=== PATIENT | male | born 1940 | race Caucasian/White ===

== ENCOUNTER 2024-08-29 19:37 | Emergency (ER) | payer MEDICARE, SELFPAY ==
--- NOTE | ~2024-08-29 | XR_ITS ---
XR chest 2V Ordering provider: Sneha North MD History: 83 years Male with . weak ness . Comparison: None. FINDINGS: MEDIASTINUM: The cardiac silhouette is not enlarged. LUNGS: No infiltrates, effusions or pneumothorax. Underlying emphysematous changes. OTHER: No free air under the diaphragm. Bilateral shoulder arthroplasty. Degenerative changes of the spine. IMPRESSION: No acute cardiopulmonary pathology. Reviewed, dictated and finalized at location A.
--- NOTE | 2024-08-29 19:42 | ECG_ITS ---
Test Date: 2024-08-29 19:57:04 Measurements Intervals [place] Rate: 86 P: 51 LA: 179 QRS: 66 QRSD: 146 T: -24 QT: 401 QTc: 482 Interpretive Statements SINUS RHYTHM RIGHT BUNDLE BRANCH BLOCK [120+ ms QRS DURATION, UPRIGHT V1, 40+ ms S IN I/aVL/V4/V5/V6] No previous ECG available for comparison Electronically Signed On 08-30-2024 14:00:59 CDT by John Catalan M.D.
[2024-08-29 19:51] VITALS: BP 93/57; PULSE 86; RESP 14; TEMP 37.7; O2SAT 99
[2024-08-29 20:14] LABS: Basophils Absolute Auto 0.1 K/mm3 (0.0-0.1); Basophils Percent Auto 0.3 % (0.2-1.2); Eosinophils Percent Auto 0.2 % (0-4.4); Hematocrit 24.5 % (42.0-52.0); Hemoglobin 7.4 g/dL (14.0-18.0); Immature Granulocyte Absolute 0.08 K/mm3 (0.00-0.031); Immature Granulocyte Percent A 0.6 % (0-0.5); Lymphocytes Absolute Auto 1.03 K/mm3 (0.9-3.2); Lymphocytes Percent Auto 7.1 % (18.3-44.2); Mean Corpuscular HGB Conc 30.2 g/dl (32-36); Mean Corpuscular Hemoglobin 20.4 pg (26-34); Mean Corpuscular Volume 67.7 fl (80-100); Monocytes Absolute Auto 1.4 K/mm3 (0.1-0.6); Monocytes Percent Auto 9.6 % (2.6-8.5); Neutrophils Percent Auto 82.2 % (45.5-73.1); Platelet Count Result 591 k/mm3 (150-375); Red Blood Count 3.62 M/mm3 (4.6-6.20); Red Cell Distribution Width 18.6 % (11.5-14.5); White Blood Count 14.5 K/mm3 (4.5-10.0)
[2024-08-29 20:28] LABS: Alanine Aminotransferase 24 U/L (6-50); Albumin Level 3.1 g/dL (3.5-5.1); Alkaline Phosphatase 185 U/L (38-126); Anion Gap 11 mmol/L (4-12); Aspartate Amino Transferase 24 U/L (17-59); Bilirubin,Total 0.4 mg/dL (0.2-1.3); Blood Urea Nitrogen 22 mg/dL (9-20); Calcium 8.4 mg/dL (8.4-10.2); Carbon Dioxide 22 mmol/L (22-30); Chloride 92 mmol/L (98-107); Estimated CRCL calculation 62 ml/min; Estimated Glomerular Filt Rate > 60; Glucose 113 mg/dL (65-110); Potassium 3.8 mmol/L (3.4-5.0); Sodium 125 mmol/L (137-145)
[2024-08-29 20:41] LABS: Anisocytosis 1+; Band Neutrophils Percent 0 % (0-6); Ovalocytes 1+; Platelet Estimate Increased (Adequate); Schistocytes None Seen; Target Cells 1+
[2024-08-29 20:53] VITALS: BP 116/72; PULSE 86; RESP 16; O2SAT 93
[2024-08-29 20:53] LABS: Influenza A QL RT-PCR Negative (Negative); Influenza B QL RT-PCR Negative (Negative); RSV RNA, RT-PCR Negative (Negative); SARS-CoV-2 RNA PCR Negative (Negative)
--- NOTE | 2024-08-29 21:17 | ED_ITS ---
HPI - Weakness General Chief complaint: Weakness Stated complaint: weak, anemia, low bp Time Seen by Provider: 08/29/24 21:10 Source: patient Mode of arrival: ambulatory Limitations: no limitations History of Present Illness HPI Narrative: This is an 83-year-old male who presents to the ED for chief complaint of generalized weakness ongoing for the past several weeks. Patient was just admitted and discharged from defer facility for this same complaint with findings of anemia and low blood pressure. Patient states that he is feeling about the same from when he was discharged from the hospital. His family is bedside and concerned that he has not gotten better with the iron pills that they prescribed. He has been taking ferrous sulfate 3 times a day for the past 2 days. Family is concerned that home health found his blood pressure to be in the 50s yesterday. Patient states that he does have bilateral lower extremity swelling but denies shortness of breath. Patient states that he has not developed any kind of worsening symptoms, fever or pain since leaving the hospital. Denies chest pain, abdominal pain, lightheadedness or syncope. Family states that they are unsure of what is causing his anemia. Review of Systems 2 Review of Systems: All systems as dictated in HPI Exam 2 Narrative: GENERAL: Appears elderly and frail. HEAD: Normocephalic, atraumatic. EYES: PERRLA and EOMI. ENT: Nares clear, no rhinorrhea or epistaxis. Mucous membranes moist. Oropharynx without tonsillar hypertrophy exudate or other lesions. NECK: Supple. No adenopathy or masses. CHEST: No respiratory distress. Clear to auscultation. No wheezes rales or rhonchi HEART: Regular rate and rhythm. No murmur heard. Normal peripheral pulses. ABDOMEN: Soft, nontender, nondistended, normal active bowel sounds. MSK: 3+ pitting edema to the bilateral lower extremities. Normal range of motion throughout all extremities. SKIN: Warm, dry, no rash. NEURO: Alert and oriented x4. No focal deficits. PSYCH: Normal mood and affect. Course Vital Signs Vital signs: Vital Signs Temperature 99.8 F H 08/29/24 19:51 Pulse Rate 86 08/29/24 19:51 Respiratory Rate 14 08/29/24 19:51 Blood Pressure 93/57 L 08/29/24 19:51 Pulse Oximetry 99 08/29/24 19:51 Temperature 99.8 F H 08/29/24 19:51 Pulse Rate 86 08/29/24 20:53 Respiratory Rate 16 08/29/24 20:53 Blood Pressure 116/72 08/29/24 20:53 Pulse Oximetry 93 08/29/24 20:53 MDM - Weakness MDM Narrative Medical decision making narrative: This is a 83-year-old male who presents to the ED for generalized weakness and anemia. Vitals are normal. Exam remarkable for the above. He does appear elderly and frail. He has 3+ pitting edema to the bilateral ankles. Saturating well on room air with no evidence of fluid overload to his chest. Lab work shows mildly elevated white count of 14.5. He is explaining that he chronically has an elevated white count and this is about what it was during his recent hospital stay at another facility. Hemoglobin of 7.4 today. Again during his recent facility patient reports that his hemoglobin was around 7.1. They did start him on ferrous sulfate outpatient. Their main reason for being here today was because he was still feeling weak after several days of the ferrous sulfate treatment. Explain to the patient and family that it takes quite some time for ferrous sulfate to make a significant clinical difference for iron deficiency anemia and the symptoms associated. BNP was drawn with the increased swelling and is only elevated to 739 today. Does not appear to be in acute CHF. His albumin is low at 3.1 which may be contributing to his swelling. I offered admission for the above findings for further investigation of the anemia and generalized weakness. Patient states that he feels well enough to and like to follow-up with primary care on this issue. Advise that he address the anemia and the swelling with PCP. Family's questions have been answered and they are in agreement with this plan. Patient will be discharged in stable condition. Supportive measures discussed and return precautions given. Patient is understanding and agreeable with plan for discharge with PCP follow-up. Lab Data 08/29/24 20:08 08/29/24 20:08 Labs: Lab Results 08/29/24 Range/Units 20:08 WBC 14.5 H (4.5-10.0) K/mm3 RBC 3.62 L (4.6-6.20) M/mm3 Hgb 7.4 L (14.0-18.0) g/dL Hct 24.5 L (42.0-52.0) % MCV 67.7 L (80-100) fl MCH 20.4 L (26-34) pg MCHC 30.2 L (32-36) g/dl RDW 18.6 H (11.5-14.5) % Plt Count 591 H (150-375) k/mm3 MPV 8.0 (7.4-10.4) fl Immature Gran % (Auto) 0.6 H (0-0.5) % Neut % (Auto) 82.2 H (45.5-73.1) % Lymph % (Auto) 7.1 L (18.3-44.2) % Yancey % (Auto) 9.6 H (2.6-8.5) % Eos % (Auto) 0.2 (0-4.4) % Baso % (Auto) 0.3 (0.2-1.2) % Lymph # (Auto) 1.03 (0.9-3.2) K/mm3 Yancey # (Auto) 1.4 H (0.1-0.6) K/mm3 Eos # (Auto) 0.0 (0-0.3) K/mm3 Baso # (Auto) 0.1 (0.0-0.1) K/mm3 Abs Immat Gran (auto) 0.08 H (0.00-0.031) K/mm3 Absolute Neuts (auto) 12.0 H (1.3-6.7) K/mm3 Absolute Nucleated RBC 0.000 (0.0-0.012) K/mm3 Band Neutrophils % 0 (0-6) % Nucleated RBC % 0.0 (0.0-0.2) % Platelet Estimate Increased (Adequate) Anisocytosis 1+ Target Cells 1+ Ovalocytes 1+ Schistocytes None seen Sodium 125 L (137-145) mmol/L Potassium 3.8 (3.4-5.0) mmol/L Chloride 92 L (98-107) mmol/L Carbon Dioxide 22 (22-30) mmol/L Anion Gap 11 (4-12) mmol/L BUN 22 H (9-20) mg/dL Creatinine 0.65 L (0.7-1.3) mg/dL Estim Creat Clear Calc 62 ml/min Estimated GFR > 60 (59 - ) Glucose 113 H (65-110) mg/dL Calcium 8.4 (8.4-10.2) mg/dL Total Bilirubin 0.4 (0.2-1.3) mg/dL AST 24 (17-59) U/L ALT 24 (6-50) U/L Alkaline Phosphatase 185 H (38-126) U/L Total Protein 6.0 L (6.3-8.2) g/dL Albumin 3.1 L (3.5-5.1) g/dL Influenza A (RT-PCR) Negative (Negative) Influenza B (RT-PCR) Negative (Negative) RSV (RT-PCR) Negative (Negative) SARS-CoV-2 RNA (RT-PCR) Negative (Negative) Discharge Plan Discharge Clinical Impression: Anemia, Edema, pitting Patient Disposition: Home, Self-Care Condition: Stable Instructions: Antibiotic Form Additional Instructions: Exam and workup today does show anemia. It seems that your labs are probably at their baseline from most recent hospital stay. Please follow-up closely with primary care for anemia workup. Continue taking iron pills for likely iron deficiency anemia. Increase calorie intake, specifically protein intake as well as electrolytes. If you have any new or worsening symptoms please return to the ER for further evaluation. Patient Language: Chadian Prescriptions: New ferrous sulfate 325 mg (65 mg iron) tablet 325 mg PO DAILY Qty: 30 0RF Follow-up/Referrals: PHYSICIAN NOT ON STAFF,NONSTAFF [Primary Care Provider] - Jennifer Matt DO [Physician] - Time of Disposition: 22:02
[2024-08-29 21:52] LABS: NT Pro B Type Natriuretic Pept 739 pg/mL (19.9-100)
--- OUTSIDE RECORDS SUMMARY | 2024-08-29 22:24 | XMS_ITS | Data Portability ---
Author Organization [facility], [address] [place] [address] ([place]) Address [address] [place] [address] Care Team Providers Care Cake Stripper Name Role Phone GISELECHANEL PORTER Primary Care Provider [phone] Assessment Encounter Date Assessment Date Assessment LastModified by Organization Details LastModified Time 01/25/2024 01/25/2024 1. The following diagnosis is categorized as a SELF-LIMITED OR MINOR PROBLEM: We discussed the fact that lentigines are actinically induced and that they are benign. We discussed the fact that they should be watched carefully for change. We discussed the importance of photoprotection using protective clothing and sunscreen with SPF thirty or higher on a regular basis. 2.The following diagnosis is categorized as a CHRONIC ILLNESS (STABLE/At Pt Goal): Benign nevi. We discussed the importance of watching for new and/or changing lesions. We discussed the worrisome changes to watch for that could indicate a melanoma. We discussed the importance of photoprotection using protective clothing and sunscreen with OTC SPF 30 or higher. Avoid peak hours of sun exposure (10am-3pm). We discussed the importance of regular self-skin examinations. 3. The following diagnosis is categorized as a SELF LIMITED OR MINOR PROBLEM: Seborrheic keratosis,: We discussed the fact that these are benign lesions requiring no treatment. We discussed the fact that removal would be considered a cosmetic procedure and would not be covered by insurance. The patient was advised that more such lesions may develop. The patient is not bothered by the lesions and does not wish to have them treated. We will observe. OTC tx for SK: wart removers, dermabrasion, 35% hydrogen peroxide daily with paint or makeup brush 4. The following diagnosis is categorized as a CHRONIC ILLNESS : History of non-melanoma skin cancer. We discussed the importance of regular skin examinations by a physician as well as monthly self-skin examinations. No evidence of recurrence in previously treated areas. We discussed the worrisome changes to watch for in skin lesions. We discussed the importance of watching for new and/or changing lesions. We discussed the importance of photoprotection using protective clothing and sunscreen with SPF 30 or higher. Pt was instructed to call the office if develops a lesion which grows or changed rapidly. 5. The following diagnosis is categorized as a CHRONIC ILLNESS (STABLE/At Pt Goal): History of melanoma, 0.6 mm, on right helix s/p excision and SLNB negative 05/2018. Recall in task to reflect the date of his next appointment. We discussed the importance of regular skin examinations by a physician as well as monthly self skin examinations. No evidence of recurrence in previously treated areas. We discussed the worrisome changes to watch for in skin lesions. We discussed the importance of watching for new and/or changing lesions. We discussed the importance of photoprotection using protective clothing and sunscreen with SPF thirty or higher. Recommend yearly eye and dental exam. 6. The following diagnosis is categorized as a CHRONIC ILLNESS: Actinic Damage: Discussed diagnosis and treatment options. Pt opts to treat with field therapy. PRESCRIPTION DRUG MANAGEMENT was performed including discussion with the patient and/or family member that may include dose, expectations of treatment including potential side effects, review of patient response, and when necessary or clinically appropriate change in medication or dosage. After reviewing risks and benefits of treatment, we decided to proceed with topical RX 5-FU. The risks and benefits of were discussed in detail. The side effects of redness, irritation, burning, discomfort and sun sensitivity were discussed. The patient is to apply a thin film to the affected area(s) on the left forearm and forehead and wash hands thoroughly after application. The patient is to use this BID x 3 weeks to arms. Informational brochure given to and discussed with patient. The patient expresses understanding. The patient is to call with any problems or questions. 7.The following diagnosis is categorized as a CHRONIC ILLNESS: Actinic keratoses: I suggested we treat the lesions with liquid nitrogen today. The risks and benefits of the procedure, the risks and benefits of alternative procedures, as well as the possible consequences of not undergoing the procedure were discussed. The patient verbalized understanding and gives consent to proceed. Liquid nitrogen was applied to all affected areas. Side effects of pain, redness, blistering, scabbing, hypopigmentation and recurrence were discussed with the patient. The patient was advised that these are pre-skin cancers: they have a small risk of developing into skin cancers and their presence signifies an increased risk for developing skin cancer. Thus she was advised to use a sunscreen of at least SPF 30 and wear protective clothing. Lesions were treated on the left cheek 2, left ear 1, right cheek 4, right ear 1, . Pt to call if lesions do not heal/resolve as expected. Pt voiced understanding I asked pt to return in 6 months for TBSE/ Hx: Melanoma/NMSC. Pt is advised to call office with questions and concerns. [facility] 01/25/2024 15:46:51 Plan of Treatment Reminders Order Date Submit Date Provider Last Modified By Organization Details Last Modified Time Details Appointments Establish ed Patient 15.EST 2024 03:00P M Viki Tompkins Not available Not available Not available Lab None recorded. Referral None recorded. Procedures None recorded. Surgeries None recorded. Imaging None recorded. Medication Orders Efudex 5 % topical cream 2023 024 [id number], [address], [place], [phone], 01/25/2024 15:39:47 Patient TargetsNo targets recorded. Patient InstructionsNo instructions recorded. Reason for Referral None Reported. 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 Procedures Surgical History Date Name Laterality Status Provider Name and Address Organization Details Recorded Time excision of malignant neoplasm completed Jaz Briggs [facility] 01/23/2024 17:43:40 Imaging Results None recorded. Procedure Notes None recorded. Medical Equipment None Reported. Medications Name Sig Start Date Stop Date Status Note LastModified by Organization Details LastModified Time latanoprost 0.005 % eye drops INSTILL 1 DROP IN LEFT EYE EVERY MORNING active Not Available Not Available No t Available Efudex 5 % topical cream Apply to affected areas twice daily. Wear sun protectio n. 2023 active Not Available Not Available Not Avai lable hydrochlorothi azide 25 mg tablet TAKE 1 TABLET BY MOUTH DAILY active Not Available Not Available No t Available Vitals None Recorded Social History None recorded. Functional Status None recorded. Mental Status None recorded. Family History Nothing Reported. Medical History No medical history recorded. Past Encounters Encounter ID Performer Location Encounter Start Date Encounter Closed Date Diagnosis/Indication Diagnosis SNOMED-CT Code Diagnosis ICD10 Code Diagnosis Note [id number] Viki Connor MD [facility] [address] [facility] [place] [address] 01/25/2024 13:40:27 01/25/2024 14:26:20 Actinic keratosis 925768608 L57.0 Melanocyti c nevus of right upper limb 173294942 D22.61 Melanocyti c nevus of left lower limb 4437036500 63163 D22.72 History of malignant neoplasm of skin 523547615 Z85.828 Skin hsu es due to chronic exposure to non-ionizing radiation 428900830 L57.8 Health Concerns Section Related Observation LastModified by Organization Detai ls LastModified Time None Recorded Concern Status LastModified by Organization Details LastModified Time None Recorded Advance Directives Directive None Recorded Payers Encounter Date Sequence Insurance Name Policy Number Policy Trejo Covered Member ID Trejo Member ID Guarantor Name 01/25/2024 1 [place] Thang Pandya [id number] Thang Pandya 01/25/2024 2 [place] [id number] Thang Pandya [id number] Thang Pandya Notes Date Note Type Note Provider Name and Address Organization Details Recorded Time 01/25/2024 text/html Pt presents today for TBSE. Hx melanoma and NMSC. No specific areas of concern. Viki Connor MD [address] [place] [address], [phone], [facility] 01/25/2024 15:47:31
[2024-08-29 22:43] VITALS: BP 101/64; PULSE 80; RESP 20; O2SAT 96
== END 2024-08-29 22:45 | disposition home or self-care (01) ==
LOC: ANHED 22:22
PROVIDERS: Emergency Medicine; Emergency Provider Physician Assistant
DX: D64.9 Anemia, unspecified (principal); R60.9 Edema, unspecified; Z20.822 Contact with and (suspected) exposure to COVID-19; I45.10 Unspecified right bundle-branch block
CPT/HCPCS: 36415; 71046; 80053; 83880; 85025; 87637; 93005; 99283